=== PATIENT | female | born 1960 | race Caucasian/White ===

== ENCOUNTER 2025-04-22 06:37 | Day surgery (SDC) | payer BC, SELFPAY ==
[2025-04-17 09:03] LABS: Hematocrit 37.7 % (37.0-47.0); Hemoglobin 12.8 g/dL (12.0-16.0); Mean Corp Hgb Conc. 34.0 g/dL (33.0-37.0); Mean Corpuscular Volume 88.1 fL (81.0-99.0); Platelet Count 271 10^3/uL (130-400); Red Cell Dist. Width 13.4 % (11.5-14.5)
[2025-04-17 09:47] LABS: Blood Urea Nitrogen 11 mg/dl (7-17); Calcium 9.9 mg/dl (8.4-10.2); Carbon Dioxide 27 mmol/L (22-30); Chloride 106 mmol/L (98-107); Glucose 90 mg/dl (70-99); Potassium 4.7 mmol/L (3.5-5.1); Sodium 138 mmol/L (135-145); eGFR > 60.00
[2025-04-17 14:12] VITALS: BMI 27.4
[2025-04-22 06:56] VITALS: BMI 27.4
[2025-04-22 06:57] VITALS: BP 139/90
--- NOTE | 2025-04-22 06:57 | W.SUR.PREOP ---
Pre-Operative Surgical Note
-
I have examined this patient prior to the performance of the scheduled procedure.
The patient's condition is unchanged from the time of the current History and
Physical and the patient is able to undergo the scheduled procedure.
[2025-04-22] MEDS: TYLENOL 1000 MG PO (06:59)
[2025-04-22] MEDS: NORMOSOL-R/PLASMALYTE-A 1000 IV (07:00)
--- NOTE | 2025-04-22 08:53 | W.IMMPOSTOP ---
Addendum entered and electronically signed by Zach Gil MD 04/22/25 09:01:
#[id number]
Original Note:
Surgical Immed Post Op Note
-
Primary Surgeon: Zach Gil MD
Assisting Surgeon: Luz Meyer PA-c
Pre-op Diagnosis: Left inguinal hernia
Post-op Diagnosis: Left inguinal hernia, indirect
Procedure Performed: Robotic assisted laparoscopic DUY repair left inguinal hernia with mesh; 3D max large mid weight
Anesthesia Type: GETA +0.25% Marcaine
Specimen / Cultures: None
Estimated Blood Loss: 6 mL
Complications: None immediate
Operative Findings: Sizable left indirect inguinal hernia. Direct and femoral space normal. 3D max large mid weight mesh repair secured to Srinath's ligament with 2-0 Vicryl stitch x 2. Peritoneal flap closed with 2-0 Monocryl STRATAFIX spiral.
No additional incidental findings.
The assistance of Luz Meyer PA-C was required due to the complexity of the procedure. During the procedure Luz Meyer PA-C assisted with port placement, robotic instrumentation and suture material exchanges, and closure of the surgical incision
sites. I was present for the entirety of the operative procedure.
[2025-04-22 08:56] VITALS: BP 129/84
[2025-04-22 09:00] VITALS: BP 131/72; BP 139/90
[2025-04-22] MEDS: DILAUDID 0.5 MG IV ×2 (09:05→09:17)
[2025-04-22 09:15] VITALS: BP 108/88
[2025-04-22 09:45] VITALS: BP 139/93
[2025-04-22 10:15] VITALS: BP 123/81
== END 2025-04-22 10:30 | disposition home or self-care (01) ==
LOC: SDS 06:37
PROVIDERS: ATTENDING PHYSICIAN Surgery; FAMILY PHYSICIAN Family Medicine
DX: K40.90 Unilateral inguinal hernia, without obstruction or gangrene, not specified as recurrent (principal)
CPT/HCPCS: 49650; 80048; 85027; 93005; C1781